=== PATIENT | male | born 1995 | race Caucasian/White ===

== ENCOUNTER 2021-09-27 12:13 | Emergency (ER) | payer OTHER, SELFPAY ==
[2021-09-27 12:30] VITALS: BP 112/71; PULSE 89; RESP 18; TEMP 36.2; O2SAT 96; BMI 19.8
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
== END 2021-09-27 13:48 | disposition home or self-care (01) ==
LOC: ER 14:41
PROVIDERS: Emergency Provider Family Medicine
DX: S10.90XA Unspecified superficial injury of unspecified part of neck, initial encounter (principal); Y04.2XXA Assault by strike against or bumped into by another person, initial encounter; Y93.F9 Activity, other caregiving; Y92.238 Other place in hospital as the place of occurrence of the external cause; Y99.0 Civilian activity done for income or pay
CPT/HCPCS: 72040; 99282